=== PATIENT | male | born 1995 | race Caucasian/White ===

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

== ENCOUNTER → 2017-01-31 | Outpatient (CLI) | payer OTHER ==
[2017-01-31 12:18] LABS: BASO % 0.4 %; BASO ABS # 0.03 K/uL (0-0.2); COMPLETE YES; EOS % 4.7 %; HEMATOCRIT 46.6 % (42-52); IG% 0.4 %; LYMPH % 25.8 %; MEAN CELL VOLUME 89.1 fL (80-100); MEAN CORPUSCULAR HEMOGLOBIN 31.2 pg (25-34); MEAN PLATELET VOLUME 10.9 fL (7.4-10.4); MONO % 8.6 %; NEUT % 60.1 %; PLATELET COUNT 236 K/uL (130-400); RED BLOOD COUNT 5.23 M/uL (4.7-6.1); WHITE BLOOD COUNT 8.14 K/uL (4.8-10.8)
[2017-01-31 13:15] LABS: ALT/SGPT 27 U/L (12-78); BLOOD UREA NITROGEN 11 mg/dl (7-18); BUN/CREATININE RATIO 10.7 (10-20); CALCIUM 9.5 mg/dl (8.5-10.1); CARBON DIOXIDE 26 mmol/L (21-32); CHLORIDE 104 mmol/L (98-107); CREATININE 1.02 mg/dl (0.60-1.40); GLUCOSE 68 mg/dl (70-99); POTASSIUM 3.8 mmol/L (3.5-5.1); SODIUM 139 mmol/L (136-145)
[2017-01-31 13:18] LABS: ALB/GLOB RATIO 1.2 (0.9-2); ALKALINE PHOSPHATASE 80 U/L (45-117); AST/SGOT 20 U/L (15-37); THYROID STIMULATING HORMONE 0.823 uIu/ml (0.300-4.500)
== END | disposition home or self-care (01) ==
LOC: C.LAB 12:02
PROVIDERS: ATTEND Neuromusculoskeletal Medicine & OMM
DX: Z00.00 Encounter for general adult medical examination without abnormal findings (principal); R53.83 Other fatigue